=== PATIENT | female | born 2000 | race Caucasian/White ===

== ENCOUNTER 2019-04-12 19:31 | Emergency (ER) | payer BC ==
[~2019-04-12] VITALS: Ht 170.2 cm; Wt 52.3 kg
[2019-04-12 19:35] VITALS: BP 110/70
[2019-04-12 20:23] LABS: STREP SCREEN NEGATIVE
[2019-04-12 22:15] VITALS: PULSE 85; TEMP 98.9
== END 2019-04-12 22:15 | disposition home or self-care (01) ==
LOC: COL.ER 19:31
PROVIDERS: Emergency Medicine
DX: J02.9 Acute pharyngitis, unspecified (principal)